=== PATIENT | female | born 1980 | race Caucasian/White ===

== ENCOUNTER → 2018-10-12 | Outpatient (CLI) | payer BC ==
[~2018-10-12] VITALS: Ht 165.1 cm; Wt 80.7 kg
[~2018-10-12] MED LIST: ATIVAN1 MG PO; BUSPAR30 MG PO; DEXTROAMP-AMPHE15 MG PO; DULOXETINE HCL40 MG PO; HYDROCODON-ACE1 EAC7 PO; NORCO 5-325 TA1 EACH PO; OMEPRAZOLE40 MG PO; REXULTI4 MG PO; SINGULAIR 10 MG10 M1 PO; TOPIRAMATE200 MG PO
[2018-10-12 09:22] VITALS: BP 120/85
--- NOTE | 2018-10-12 09:35 | NUR ---
Pain Clinic Assessment: 1. History of Osteoarthritis: History of Rheumatoid Arthritis: 2. Height: 5 ft. 5 in. 165.1 cm. Weight: 177.8 lb. oz. 80.650 kg. Patient's BMI: 29.6 3. Vital Signs: BP: 120/85 Pulse: 99 Resp: 14 Temp: 02 Sat: 100 ECG Mon: 4. Pain Intensity: 7 5. Fall Risk: Dizziness: N Needs help standing or walking: N Fallen in the last 3 months: N Fall risk comments: 6. Patient on Blood Thinner: None 7. History of Hypertension: Y 8. Opioid Therapy greater than 6 weeks: Y Opiate Contract Signed: 9. Risk Assessment Tool Provided: LOW 10. Functional Assessment Tool: 11. Recreational Drug Use: Never Drug Type: Tobacco Use: Never Smoker Tobacco Type: Amount or Packs/day: How Many Years: Alcohol Use: Yes Frequency: Special Occasions Quant:
--- NOTE | 2018-10-14 15:29 | HPC ---
[facility] [address] [place] [address] PAIN MANAGEMENT CONSULTATION Name: ELLY HESS Room #: REG HOLDEN Xander.#: [id number] Admission: 10/12/18 ������������������ Attend Phys: Oumar Tapia MD Discharge: ������������������ Date of : 82 Report #: [id number] THIS REPORT FOR: //name// CC: [facility] physician/PCP Oumar Tapia DATE OF SERVICE: 10/12/2018 Followup visit for bilateral trapezius and neck pain with myofascial syndrome. The patient is here today for trigger point injections and renewal of hydrocodone. We had a long discussion today again about polypharmacy. She is on a number of centrally-acting medications including dextroamphetamine, amphetamine extended release for ADHD, lorazepam 1 mg for anxiety disorder, low dose hydrocodone p.r.n. for severe myofascial pain, BuSpar also for anxiety, Topamax for mood stabilization and Cymbalta for depression. Despite these multiple centrally-acting medications and polypharmacy, she does not have significant side effects, certainly none that she complains about or evident in the clinic. She reports that the medications seem to be helpful for her as she gets through her day. Much of her previous stress was related to raising 3 challenging children, primarily her oldest, Elijah, who has oppositional defiant disorder and ADD as well. She is apparently doing well currently in school as a 8-year-old at ____ taken some stress away from the patient. The other 2 girls are doing well and are less problematic. She has her youngest with her today. Her children are darling! She has had them within the clinic, but I am sure that the raising of 3 small girls is stressful. Overall, she is better I think than I have seen her in the past and seems to be more relaxed during our conversation today. Some of that may be due to the medication, but she does not appear overmedicated. She reports that she will be moving to [place]. Her has had a significant promotion. She needs to be handling this in stride. If necessary, I can help her to find a physician in [place], although she said she may be driving back and forth to [place] to see her physicians including her psychiatrist. Today, she reports her pain in her neck and her trapezius is 7/10. It is a constant throbbing, stabbing sensation. Occasionally, it radiates into her hands. The majority of her pain, however, is in the neck and has responded previously to trigger points. PHYSICAL EXAMINATION: GENERAL: Pleasant, alert, oriented. Calm, relaxed. She does not appear to be depressed or overmedicated despite the multiple centrally acting medications. [facility] [address] [place] [address] PAIN MANAGEMENT CONSULTATION Name: ELLY HESS Room #: REG HOLDEN Elaine#: [id number] Admission: 10/12/18 ������������������ Attend Phys: Oumar Tapia MD Discharge: ������������������ Date of : 82 Report #: [id number] VITAL SIGNS: Blood pressure 120/85, heart rate 99, respirations 14. Her BMI is 29. Multiple trigger points were identified in cervicalis, splenius capitis and in the trapezius bilaterally in a jose shaped pattern consistent with stress-related myofascial syndrome. IMPRESSION: 1. Myofascial pain. 2. Chronic depression. 3. Stress-induced anxiety. RECOMMENDATIONS: 4. Trigger point injections. 2. I will provide her with hydrocodone 5/325, #60 tablets per month. She uses these sparingly. Denies side effects and is grateful for the pain relief that they provide. She will keep her medications safe guarded. PROCEDURE: With the patient in a seated position, skin was prepped with ChloraPrep. A 25-gauge needle was used to perform 8 separate trigger point injections in the trapezius and the splenius capitis and cervicalis on the left and the same on the right. Injections were performed in response to specific triggers and gently massaged following the injection of 1 mL at each site. I used 1 mg per mL of triamcinolone in the injectate. She tolerated the procedure well. She was observed for a short time and discharged. Followup visit planned in 3 months. I have talked to her again about possibly tapering off some of the dual antianxiety medications, BuSpar and lorazepam. She will try to use these sparingly and only as needed. ��������������������������������������������� <ELECTRONICALLY SIGNED> ���������������������������������������� By: Oumar Tapia MD ��������������������������������������������� 10/14/18 1529 1802 [id number] Oumar Tapia MD /nt
== END | disposition home or self-care (01) ==
LOC: PAIN 06:52
DX: M79.18 Myalgia, other site (principal); F32.9 Major depressive disorder, single episode, unspecified; F41.9 Anxiety disorder, unspecified; Z88.2 Allergy status to sulfonamides; Z91.013 Allergy to seafood; Z79.899 Other long term (current) drug therapy; Z98.890 Other specified postprocedural states